=== PATIENT | male | born 1990 | race African-American/Black ===

== ENCOUNTER 2021-01-29 17:47 | Emergency (ER) | payer OTHER ==
[2021-01-29 18:27] LABS: BILIRUBIN NEGATIVE (NEGATIVE); BLOOD 1+ Ery/uL (NEGATIVE); CLARITY CLEAR (CLEAR); COLOR YELLOW (YELLOW); GLUCOSE (U) NORMAL (NORMAL); LEUKOCYTES NEGATIVE Leu/uL (NEGATIVE); NITRITE NEGATIVE (NEGATIVE); PROTEIN TRACE (LOW) mg/dL (NEGATIVE); SPECIFIC GRAVITY 1.025 (1.001-1.030)
[2021-01-29 18:36] LABS: BACTERIA 1+
[2021-01-29] MEDS ORDERED: LOTRIMIN30 ML TOP (19:06)
== END 2021-01-29 21:12 | disposition home or self-care (01) ==
LOC: FER 17:47
PROVIDERS: Nurse Practitioner Family
DX: N48.1 Balanitis (principal)
CPT/HCPCS: 81001; 99283